=== PATIENT | female | born 1990 | race Caucasian/White ===

== ENCOUNTER → 2017-10-20 | Outpatient (CLI) | payer OTHER ==
[~2017-10-20] MED LIST: CUBICIN500 MG IVPB; SCOPOLAMINE1 EACH TRANSDERM
== END ==
LOC: OPONC 04:03
DX: L02.611 Cutaneous abscess of right foot (principal)
CPT/HCPCS: 95000

== ENCOUNTER → 2017-10-23 | Outpatient (CLI) | payer OTHER ==
[2017-10-23 13:00] VITALS: BP 96/60
== END ==
LOC: OPONC 07:22
DX: L02.611 Cutaneous abscess of right foot (principal)
CPT/HCPCS: 95000

== ENCOUNTER → 2017-10-24 | Outpatient (CLI) | payer OTHER ==
[2017-10-24 13:15] VITALS: BP 100/67
== END ==
LOC: OPONC 07:24
DX: L02.611 Cutaneous abscess of right foot (principal); B95.62 Methicillin resistant Staphylococcus aureus infection as the cause of diseases classified elsewhere
CPT/HCPCS: 95000

== ENCOUNTER → 2017-10-25 | Outpatient (CLI) | payer OTHER ==
[2017-10-25 13:12] VITALS: BP 105/69
== END ==
LOC: OPONC 07:25
DX: L02.611 Cutaneous abscess of right foot (principal); B95.62 Methicillin resistant Staphylococcus aureus infection as the cause of diseases classified elsewhere
CPT/HCPCS: 95000

== ENCOUNTER → 2017-10-26 | Outpatient (CLI) | payer OTHER ==
[2017-10-26 15:22] VITALS: BP 113/61
== END ==
LOC: OPONC 07:27
DX: L02.611 Cutaneous abscess of right foot (principal); B95.62 Methicillin resistant Staphylococcus aureus infection as the cause of diseases classified elsewhere
CPT/HCPCS: 95000

== ENCOUNTER → 2017-10-27 | Outpatient (CLI) | payer OTHER | LOC: OPONC | DX: L02.611 Cutaneous abscess of right foot (principal) | CPT/HCPCS: 95000 ==

== ENCOUNTER → 2017-10-28 | Outpatient (CLI) | payer OTHER | LOC: OPONC 04:24 | DX: L02.611 Cutaneous abscess of right foot (principal); B95.62 Methicillin resistant Staphylococcus aureus infection as the cause of diseases classified elsewhere | CPT/HCPCS: 95000 ==

== ENCOUNTER → 2017-10-30 | Outpatient (CLI) | payer OTHER ==
[2017-10-30 09:41] VITALS: BP 107/62
== END ==
LOC: OPONC 07:33
DX: L02.611 Cutaneous abscess of right foot (principal); B95.62 Methicillin resistant Staphylococcus aureus infection as the cause of diseases classified elsewhere; Z88.5 Allergy status to narcotic agent; Z88.8 Allergy status to other drugs, medicaments and biological substances
CPT/HCPCS: 95000

== ENCOUNTER → 2017-10-31 | Outpatient (CLI) | payer OTHER ==
[2017-10-31 09:00] VITALS: BP 103/62
== END ==
LOC: OPONC 00:15
DX: L02.611 Cutaneous abscess of right foot (principal); B95.62 Methicillin resistant Staphylococcus aureus infection as the cause of diseases classified elsewhere; Z88.5 Allergy status to narcotic agent; Z88.8 Allergy status to other drugs, medicaments and biological substances
CPT/HCPCS: 95000

== ENCOUNTER → 2017-11-01 | Outpatient (CLI) | payer OTHER ==
[2017-11-01 09:15] VITALS: BP 104/55
== END ==
LOC: OPONC 07:45
DX: L02.611 Cutaneous abscess of right foot (principal); B95.62 Methicillin resistant Staphylococcus aureus infection as the cause of diseases classified elsewhere
CPT/HCPCS: 95000

== ENCOUNTER → 2017-11-02 | Outpatient (CLI) | payer OTHER ==
[2017-11-02 09:50] VITALS: BP 109/57
== END ==
LOC: OPONC 07:34
DX: L02.611 Cutaneous abscess of right foot (principal); B95.62 Methicillin resistant Staphylococcus aureus infection as the cause of diseases classified elsewhere; Z88.5 Allergy status to narcotic agent; Z88.8 Allergy status to other drugs, medicaments and biological substances
CPT/HCPCS: 95000

== ENCOUNTER → 2017-11-03 | Outpatient (CLI) | payer OTHER | LOC: OPONC 04:51 | DX: L02.611 Cutaneous abscess of right foot (principal); B95.62 Methicillin resistant Staphylococcus aureus infection as the cause of diseases classified elsewhere; Z88.5 Allergy status to narcotic agent; Z88.8 Allergy status to other drugs, medicaments and biological substances | CPT/HCPCS: 95000 ==

== ENCOUNTER → 2017-11-04 | Outpatient (CLI) | payer OTHER | LOC: OPONC 04:08 | DX: L02.611 Cutaneous abscess of right foot (principal); B95.62 Methicillin resistant Staphylococcus aureus infection as the cause of diseases classified elsewhere; Z88.5 Allergy status to narcotic agent; Z88.8 Allergy status to other drugs, medicaments and biological substances | CPT/HCPCS: 95000 ==

== ENCOUNTER → 2017-11-05 | Outpatient (CLI) | payer OTHER | LOC: OPONC 00:47 | DX: L02.611 Cutaneous abscess of right foot (principal); B95.62 Methicillin resistant Staphylococcus aureus infection as the cause of diseases classified elsewhere; Z88.5 Allergy status to narcotic agent; Z88.8 Allergy status to other drugs, medicaments and biological substances | CPT/HCPCS: 95000 ==

== ENCOUNTER → 2017-11-06 | Outpatient (CLI) | payer OTHER ==
[2017-11-06 11:15] VITALS: BP 100/67
[2017-11-06 11:41] LABS: HEMOGLOBIN 12.4 gm/dL (12.0-15.0); MCH 31.9 pg (26.0-34.0); MCHC 33.7 g/dL (28.0-37.0); MCV 94.9 fL (80.0-100.0); RBC 3.9 mil/uL (4.20-5.00); RDW 13.3 % (10.5-14.5); WBC 5.3 thou/uL (4.0-11.0)
[2017-11-06 11:52] LABS: ALBUMIN 3.6 g/dL (3.4-5.0); CALCIUM 8.9 mg/dL (8.5-10.1); CREATININE 0.7 mg/dL (0.6-1.0); POTASSIUM 4.1 mmol/L (3.5-5.1); TOTAL BILIRUBIN 0.6 mg/dL (<0.1-1.0); TOTAL PROTEIN 6.9 g/dL (6.4-8.2)
== END ==
LOC: OPONC 08:21
PROVIDERS: Specialist
DX: L02.611 Cutaneous abscess of right foot (principal); B95.62 Methicillin resistant Staphylococcus aureus infection as the cause of diseases classified elsewhere; Z88.5 Allergy status to narcotic agent; Z88.8 Allergy status to other drugs, medicaments and biological substances
CPT/HCPCS: 95000

== ENCOUNTER → 2017-11-07 | Outpatient (CLI) | payer OTHER ==
[~2017-11-07] MED LIST changes: +BACTRIM DS TAB1 EACH PO; +DILAUDID 2 MG TA2 MG PO; +VENTOLIN HFA 1818 GM INH
[2017-11-07 09:45] VITALS: BP 103/57
== END ==
LOC: OPONC 00:50
DX: L02.611 Cutaneous abscess of right foot (principal); B95.62 Methicillin resistant Staphylococcus aureus infection as the cause of diseases classified elsewhere; Z88.5 Allergy status to narcotic agent; Z88.8 Allergy status to other drugs, medicaments and biological substances
CPT/HCPCS: 95000

== ENCOUNTER 2018-01-11 05:26 | Day surgery (SDC) | payer OTHER ==
[~2018-01-11] VITALS: Ht 165.1 cm; Wt 76.2 kg
--- NOTE | ~2018-01-11 | O ---
[facility] [place] [address] OPERATIVE REPORT Name: CHIQUITA CHANG Room #: DEP [facility] [place] M.R.#: [id number] Admission: 01/11/18 Attend Phys: Alexandro Abbasi MD Discharge: 01/11/18 Date of : 89 Report #: [id number] THIS REPORT FOR: //name// CC: [facility] physician/PCP Alexandro Abbasi DATE OF SERVICE: 01/11/2018 PREOPERATIVE DIAGNOSIS: Right foot foreign body abscess. POSTOPERATIVE DIAGNOSIS: Right foot foreign body abscess. PROCEDURE: Right foot irrigation and debridement. SURGEON: Alexandro Abbasi M.D. WELT MAKER: Erma Peterson. ANESTHESIA: General. ESTIMATED BLOOD LOSS: Minimal. DRAINS: None. TOURNIQUET TIME: 15 minutes. DESCRIPTION OF PROCEDURE: The patient brought to the operating room, where she was placed under general anesthesia. Once under adequate general anesthesia, her right lower extremity was prepped and draped in sterile manner. The extremity was elevated and a tourniquet placed to 250 mmHg. A lateral incision on the patient's previous scar was then made to dissect down through the soft tissue to the peroneal tendon laterally and the area of the patient's foreign body abscess was along some Monocryl suture, which was then subsequently removed from the peroneal tendon itself. Once complete, the wound was irrigated copiously and closed with 3-0 nylon for the skin. The wound was dressed with Xeroform, 4 x 4s, and a sterile soft compressive dressing was placed. Tourniquet was let down at approximately 15 minutes. Toes were pink and warm with good capillary refill. There were no complications from the procedure. The patient tolerated the procedure well and went to the recovery room without incident. <ELECTRONICALLY SIGNED> By: Alexandro Abbasi MD 01/14/18 2230 [id number] Alexandro Abbasi MD /nt
[~2018-01-11 05:26] MED LIST changes: -DILAUDID 2 MG TA2 MG PO
[2018-01-11 13:07] VITALS: BP 111/70
[2018-01-11] MEDS ORDERED: DILAUDID 2 MG TA2 MG PO (14:57)
[2018-01-11 15:37] VITALS: BP 111/70
== END 2018-01-11 16:50 | disposition home or self-care (01) ==
LOC: OR 05:26 → TBA 05:26 → OR 06:53
DX: T81.4XXA Infection following a procedure, initial encounter (principal); L02.611 Cutaneous abscess of right foot; J45.909 Unspecified asthma, uncomplicated; F17.210 Nicotine dependence, cigarettes, uncomplicated; Z98.890 Other specified postprocedural states; Z88.8 Allergy status to other drugs, medicaments and biological substances; Z79.899 Other long term (current) drug therapy; Y83.8 Other surgical procedures as the cause of abnormal reaction of the patient, or of later complication, without mention of misadventure at the time of the procedure
CPT/HCPCS: 50010; 50101; 50386; 56527; 57091; 62110; 62900; 70005